=== PATIENT | female | born 1955 | race Caucasian/White ===

== ENCOUNTER 2020-03-24 10:29 | Emergency (ER) | payer OTHER ==
[~2020-03-24] VITALS: Ht 157.5 cm; Wt 76.7 kg
[2020-03-24 10:42] VITALS: Ht 157.5 cm; Wt 76.7 kg
[2020-03-24 11:38] LABS: BASOPHIL % 1.1 % (0-2); PLATELET COUNT 228 x10^3mcL (130-400)
[2020-03-24 11:49] LABS: CALCIUM 8.7 mg/dL (8.5-10.1); CARBON DIOXIDE 27.5 mmol/L (21-32); CHLORIDE SERUM 104 mmol/L (98-107); CREATININE SERUM 0.9 mg/dL (0.6-1.0); GFR1 > 60 mL/min; GLUCOSE SERUM 178 mg/dL (74-106); POTASSIUM SERUM 4.6 mmol/L (3.5-5.1); SODIUM SERUM 141 mmol/L (136-145)
[2020-03-24 11:52] LABS: RED CELL DISTRIBUTION WIDTH 14.8 % (11.5-14.5)
[2020-03-24 12:03] LABS: ALBUMIN 3.5 g/dL (3.4-5.0); ALKALINE PHOSPHATASE 67 U/L (46-116); ALT/SGPT 23 U/L (14-59); AST/SGOT 16 U/L (15-37); BILIRUBIN TOTAL 0.3 mg/dL (0.20-1.00); HDL CHOLESTEROL 38 mg/dL (40-60); LIPASE 204 IU/L (73-393); MAGNESIUM 1.5 mg/dL (1.8-2.4); T4(THYROXINE) 10.3 ug/dL (4.7-13.3)
[2020-03-24 12:05] LABS: CHOLESTEROL 214 mg/dL (<200)
[2020-03-24 13:56] LABS: microscopic required? YES; urine erythrocyte TRACE (NEGATIVE)
[2020-03-24 14:14] LABS: AMPHETAMINE QUAL UR NONE DETECTED (See below)
[2020-03-24 14:37] VITALS: BP 143/59
== END 2020-03-24 14:37 | disposition home or self-care (01) ==
LOC: ED 10:29
PROVIDERS: Emergency Medicine
DX: J32.3 Chronic sphenoidal sinusitis (principal); E11.9 Type 2 diabetes mellitus without complications; I10 Essential (primary) hypertension; E03.9 Hypothyroidism, unspecified; K21.9 Gastro-esophageal reflux disease without esophagitis
CPT/HCPCS: 82962; J8597; Q0092

== ENCOUNTER 2020-07-12 16:22 | Emergency (ER) | payer OTHER ==
[~2020-07-12] VITALS: Ht 160 cm; Wt 77.1 kg
[2020-07-12 16:46] VITALS: Ht 160 cm; Wt 77.1 kg
[2020-07-12 19:08] LABS: BASOPHIL % 0.9 % (0-2); PLATELET COUNT 233 x10^3mcL (130-400); RED CELL DISTRIBUTION WIDTH 15.1 % (11.5-14.5)
[2020-07-12 19:36] LABS: CALCIUM 8.6 mg/dL (8.5-10.1); CARBON DIOXIDE 26.5 mmol/L (21-32); CREATININE SERUM 1.3 mg/dL (0.6-1.0); POTASSIUM SERUM 4.6 mmol/L (3.5-5.1)
[2020-07-12 19:40] LABS: ALBUMIN 3.5 g/dL (3.4-5.0); BILIRUBIN TOTAL 0.3 mg/dL (0.20-1.00); TOTAL PROTEIN, SERUM 7.3 g/dL (6.4-8.2)
[2020-07-12 20:42] VITALS: BP 137/62
== END 2020-07-12 20:40 | disposition home or self-care (01) ==
LOC: ED 16:22
PROVIDERS: Emergency Medicine
DX: R07.89 Other chest pain (principal); R10.9 Unspecified abdominal pain; R21 Rash and other nonspecific skin eruption; L29.9 Pruritus, unspecified; R06.02 Shortness of breath; E11.9 Type 2 diabetes mellitus without complications; E03.9 Hypothyroidism, unspecified; K21.9 Gastro-esophageal reflux disease without esophagitis; Z98.890 Other specified postprocedural states
CPT/HCPCS: 85378; Q0092